=== PATIENT | female | born 1970 | race African-American/Black ===

== ENCOUNTER 2017-03-10 10:39 | Emergency (ER) | payer SELFPAY ==
[~2017-03-10] VITALS: Ht 157.5 cm; Wt 79.5 kg
[2017-03-10] MEDS ORDERED: METFORMIN500 MG PO (11:04)
[2017-03-10] MEDS ORDERED: LISINOPRIL10 MG PO (11:04)
[2017-03-10] MEDS ORDERED: JANUVIA50 MG PO (11:05)
[2017-03-10] MEDS ORDERED: LANTUS100 UNIT/M SC ×2 (11:06)
[2017-03-10 12:58] LABS: HEMATOCRIT 39.5 % (37.0-47.0); HEMOGLOBIN 13.1 g/dl (12.0-16.0); IMMATURE GRANULOCYTES 0.3 % (0.0-1.0); MEAN CELL VOLUME 89.4 fL CALC (80.0-100.0); MEAN CORPUSCULAR HGB 29.6 pG CALC (26.0-32.0); MEAN CORPUSCULAR HGB CONC 33.2 g/L CALC (32.0-36.0); NEUT# 3.71 thou/uL (2.00-7.15); RED BLOOD COUNT 4.42 mill/uL (4.20-5.60)
[2017-03-10 13:12] LABS: ALBUMIN 4.3 g/dL (3.2-5.0); ALKALINE PHOSPHATASE 141 u/l (38-126); ANION GAP 14 (6-22 (CALC)); BILIRUBIN, TOTAL 0.6 mg/dL (0.0-1.4); BUN 10 mg/dL (7-17); BUN/CREATININE RATIO 19 (12-20 (CALC)); CALCIUM 9.8 mg/dL (8.4-10.2); CARBON DIOXIDE 28 mmol/l (22-30); CHLORIDE 104 mmol/l (95-108); CREATININE 0.6 mg/dL (0.5-1.0); GFR > 60 ML/MIN (>=60 (CALC)); GFR FOR AFR.AMER. > 60 ML/MIN (>=60 (CALC)); GLUCOSE 175 mg/dL (65-105); POTASSIUM 3.9 mmol/l (3.5-5.1); SGOT/AST 29 u/l (14-36); SGPT/ALT 42 u/l (9-52); SODIUM 141 mmol/l (137-146); TOTAL PROTEIN 7.9 g/dL (6.3-8.2)
[2017-03-10 13:22] LABS: MYOGLOBIN 24 ng/mL (0 - 62)
[2017-03-10] MEDS ORDERED: KEFLEX500 MG PO (13:54)
[2017-03-10] MEDS ORDERED: PEPCID20 MG PO (13:54)
[2017-03-10] MEDS ORDERED: MEDDOSEPAK PO (13:54)
[2017-03-10 13:59] VITALS: BP 177/84
== END 2017-03-10 14:08 | disposition home or self-care (01) | DRG 305 ==
LOC: ED 10:39
PROVIDERS: Emergency Medicine
DX: I10 Essential (primary) hypertension (principal); E11.9 Type 2 diabetes mellitus without complications; T63.481A Toxic effect of venom of other arthropod, accidental (unintentional), initial encounter; R22.0 Localized swelling, mass and lump, head; F17.210 Nicotine dependence, cigarettes, uncomplicated; Z79.4 Long term (current) use of insulin

== ENCOUNTER 2017-07-06 17:54 | Emergency (ER) | payer OTHER ==
[~2017-07-06] VITALS: Ht 157.5 cm; Wt 77.3 kg
[~2017-07-06 17:54] MED LIST: JANUVIA50 MG PO; KEFLEX500 MG PO; LANTUS100 UNIT/M SC; LISINOPRIL10 MG PO; MEDDOSEPAK PO; METFORMIN500 MG PO; PEPCID20 MG PO
[2017-07-06] MEDS ORDERED: LOSARTAN POT50 MG PO (18:06)
[2017-07-06] MEDS ORDERED: TORADOL PO (19:17)
[2017-07-06] MEDS ORDERED: ORPHENADRINE100 MG PO (19:17)
[2017-07-06 19:36] VITALS: BP 160/89
== END 2017-07-06 19:36 | disposition home or self-care (01) | DRG 552 ==
LOC: ED 17:54
DX: M54.5 Low back pain (principal); X50.0XXA Overexertion from strenuous movement or load, initial encounter; Y93.89 Activity, other specified; Y92.009 Unspecified place in unspecified non-institutional (private) residence as the place of occurrence of the external cause

== ENCOUNTER 2017-08-16 18:13 | Emergency (ER) | payer OTHER ==
[~2017-08-16] VITALS: Ht 157.5 cm; Wt 70.0 kg
[~2017-08-16 18:13] MED LIST changes: +LOSARTAN POT50 MG PO; +ORPHENADRINE100 MG PO; +TORADOL PO
[2017-08-16] MEDS ORDERED: NAPROSYN500 MG PO (19:06)
[2017-08-16 19:10] VITALS: BP 180/98
== END 2017-08-16 19:12 | disposition home or self-care (01) | DRG 605 ==
LOC: ED 18:13
DX: S90.01XA Contusion of right ankle, initial encounter (principal); M25.461 Effusion, right knee; M25.561 Pain in right knee; W22.8XXA Striking against or struck by other objects, initial encounter; Y93.89 Activity, other specified; Y92.512 Supermarket, store or market as the place of occurrence of the external cause

== ENCOUNTER 2018-04-21 14:12 | Emergency (ER) | payer SELFPAY ==
[~2018-04-21] VITALS: Ht 157.5 cm; Wt 81.0 kg
[~2018-04-21 14:12] MED LIST changes: +NAPROSYN500 MG PO
[2018-04-21] MEDS ORDERED: LOTRISONE CREAM15 GM EX (15:29)
[2018-04-21] MEDS ORDERED: TORADOL PO (15:29)
[2018-04-21] MEDS ORDERED: AUGMENTIN500TAB PO (15:30)
[2018-04-21 15:35] VITALS: BP 157/88
== END 2018-04-21 15:35 | disposition home or self-care (01) | DRG 816 ==
LOC: ED 14:12
DX: I88.8 Other nonspecific lymphadenitis (principal); F17.210 Nicotine dependence, cigarettes, uncomplicated; G50.1 Atypical facial pain; R21 Rash and other nonspecific skin eruption

== ENCOUNTER 2018-09-05 17:08 | Emergency (ER) | payer SELFPAY ==
[~2018-09-05] VITALS: Ht 157.5 cm; Wt 79.0 kg
[~2018-09-05 17:08] MED LIST changes: +AUGMENTIN500TAB PO; +LOTRISONE CREAM15 GM EX
[2018-09-05] MEDS ORDERED: FLEXERIL5 M1 PO (18:16)
[2018-09-05] MEDS ORDERED: TRAMADOL HCL50 MG PO (18:16)
[2018-09-05] MEDS ORDERED: VOLTAREN - GENE75 MG PO (18:16)
[2018-09-05 18:25] VITALS: BP 166/87
== END 2018-09-05 18:25 | disposition home or self-care (01) | DRG 563 ==
LOC: ED 17:08
DX: S39.012A Strain of muscle, fascia and tendon of lower back, initial encounter (principal)

== ENCOUNTER 2019-04-15 18:45 | Emergency (ER) | payer BC ==
[~2019-04-15] VITALS: Ht 160 cm; Wt 77.2 kg
[~2019-04-15 18:45] MED LIST changes: +FLEXERIL5 M1 PO; +TRAMADOL HCL50 MG PO; +VOLTAREN - GENE75 MG PO
[2019-04-15 20:17] LABS: HEMATOCRIT 38.8 % (37.0-47.0); IMMATURE GRANULOCYTES 0.1 % (0.0-5.0); MEAN CELL VOLUME 89.8 fL CALC (80.0-100.0); MEAN CORPUSCULAR HGB 30.1 pG CALC (26.0-32.0); MEAN CORPUSCULAR HGB CONC 33.5 g/L CALC (32.0-36.0); NEUT# 3.97 thou/uL (2.00-7.15); RED BLOOD COUNT 4.32 mill/uL (4.20-5.60); RED CELL DISTRI WIDTH 13.4 % (11.5-15.5)
[2019-04-15 20:30] LABS: ALBUMIN 4.1 g/dL (3.2-5.0); ALKALINE PHOSPHATASE 131 u/l (38-126); BILIRUBIN, TOTAL 0.7 mg/dL (0.0-1.4); BUN 18 mg/dL (7-17); BUN/CREATININE RATIO 29 (12-20 (CALC)); CARBON DIOXIDE 26 mmol/l (22-30); CHLORIDE 100 mmol/l (95-108); CREATININE 0.6 mg/dL (0.5-1.0); GFR > 60 ML/MIN (>=60 (CALC)); GFR FOR AFR.AMER. > 60 ML/MIN (>=60 (CALC)); SGOT/AST 34 u/l (14-36); SODIUM 137 mmol/l (137-146); TOTAL PROTEIN 7.1 g/dL (6.3-8.2)
[2019-04-15 20:34] LABS: ANION GAP 16 (6-22 (CALC)); POTASSIUM 4.7 mmol/l (3.5-5.1)
[2019-04-15 20:39] LABS: URINE BILIRUBIN - DIPSTICK NEGATIVE (NEGATIVE); URINE BLOOD DIPSTICK TRACE-INTACT (NEGATIVE); URINE COLOR YELLOW; URINE GLUCOSE - DIPSTICK >=1000 mg/dL (NEGATIVE); URINE KETONE NEGATIVE (NEGATIVE); URINE LEUK ESTERASE NEGATIVE (NEGATIVE); URINE NITRITE - DIPSTICK NEGATIVE (Negative); URINE PH 5.5 (4.5-8.0); URINE PROTEIN - DIPSTICK NEGATIVE (NEG-TRACE); URINE UROBILINOGEN - DIPSTICK 0.2 E.U./dL (0.2)
[2019-04-15 20:41] LABS: BARBITURATES NEGATIVE (NEGATIVE); COCAINE NEGATIVE (NEGATIVE); METHADONE NEGATIVE (NEGATIVE); OXCYCODONE NEGATIVE (NEGATIVE); TETRAHYDROCANNABIONOL NEGATIVE (NEGATIVE); TRICYLIC ANTIDEPRESSANTS NEGATIVE (NEGATIVE)
[2019-04-15 20:42] LABS: MYOGLOBIN 22 ng/mL (0 - 62)
[2019-04-15 21:00] VITALS: BP 158/74
[2019-04-15] MEDS ORDERED: XANAX0.5 MG PO (21:01)
== END 2019-04-15 21:05 | disposition home or self-care (01) | DRG 310 ==
LOC: ED 18:45
PROVIDERS: Emergency Medicine
DX: R00.2 Palpitations (principal); E11.65 Type 2 diabetes mellitus with hyperglycemia; Z79.4 Long term (current) use of insulin; Z79.84 Long term (current) use of oral hypoglycemic drugs; F41.9 Anxiety disorder, unspecified; F17.210 Nicotine dependence, cigarettes, uncomplicated

== ENCOUNTER 2020-10-19 19:16 | Emergency (ER) | payer OTHER ==
[~2020-10-19] VITALS: Ht 160 cm; Wt 79.0 kg
[~2020-10-19 19:16] MED LIST changes: -LOSARTAN POT50 MG PO; +LOSARTAN POTAS100 MG PO; +XANAX0.5 MG PO
[2020-10-19] MEDS ORDERED: HYDROCHLOROT12.5 M1 PO (19:44)
[2020-10-19] MEDS ORDERED: NORVASC5 M1 PO (19:45)
[2020-10-19 20:12] LABS: URINE BILIRUBIN - DIPSTICK NEGATIVE (NEGATIVE); URINE BLOOD DIPSTICK MODERATE (NEGATIVE); URINE COLOR YELLOW; URINE GLUCOSE - DIPSTICK >=1000 mg/dL (NEGATIVE); URINE KETONE NEGATIVE (NEGATIVE); URINE LEUK ESTERASE NEGATIVE (NEGATIVE); URINE NITRITE - DIPSTICK NEGATIVE (Negative); URINE PH 5.5 (4.5-8.0); URINE PROTEIN - DIPSTICK 100 mg/dL (NEG-TRACE); URINE SPECIFIC GRAVITY 1.025; URINE UROBILINOGEN - DIPSTICK 0.2 E.U./dL (0.2)
[2020-10-19 20:23] LABS: HEMOGLOBIN 13.8 g/dl (12.0-16.0); RED BLOOD COUNT 4.61 mill/uL (4.20-5.60)
[2020-10-19 20:24] LABS: HEMATOCRIT 41.5 % (37.0-47.0); LYMPH% 41 % (15-41); MEAN CORPUSCULAR HGB 29.9 pG CALC (26.0-32.0); MEAN CORPUSCULAR HGB CONC 33.3 g/dL CAL (32.0-36.0); MONO% 3 % (2-13); NEUT% 56 % (42-76); PLATELET COUNT 287 thou/uL (130-400); RED CELL DISTRI WIDTH 13.7 % (11.5-15.5)
[2020-10-19 20:25] LABS: BASO% 0 % (0-3); EOS% 0 % (0-8)
[2020-10-19 20:26] LABS: URINE SQUAMOUS EPITHELIAL CELL FEW EPI/hpf (0-FEW); URINE WBC 0-2 WBC/hpf (0-5)
[2020-10-19 20:29] LABS: ALBUMIN 4.1 g/dL (3.2-5.0); ALKALINE PHOSPHATASE 147 u/l (38-126); BUN 13 mg/dL (7-17); BUN/CREATININE RATIO 20 (12-20 (CALC)); CARBON DIOXIDE 28 mmol/l (22-30); CHLORIDE 102 mmol/l (95-108); CREATININE 0.7 mg/dL (0.5-1.0); GFR > 60 ML/MIN (>=60 (CALC)); GFR FOR AFR.AMER. > 60 ML/MIN (>=60 (CALC)); SGOT/AST 23 u/l (14-36); SODIUM 138 mmol/l (137-146); TOTAL PROTEIN 7.6 g/dL (6.3-8.2)
[2020-10-19 20:31] LABS: ANION GAP 12 (6-22 (CALC)); BILIRUBIN, TOTAL 0.4 mg/dL (0.0-1.4); POTASSIUM 3.7 mmol/l (3.5-5.1)
[2020-10-19 20:41] LABS: MYOGLOBIN 25 ng/mL (0 - 62)
[2020-10-19] MEDS ORDERED: CLARITIN10 M1 PO (21:43)
[2020-10-19] MEDS ORDERED: AMOXICILLIN500 MG PO (21:43)
[2020-10-19 21:50] VITALS: BP 169/77
[2020-10-19] MEDS ORDERED: METFORMIN HCL500 M1 PO (22:01)
--- NOTE | 2020-10-21 08:55 | NUR ---
Patient called for Covid results. ADvised patient of negative results. PAtient c/o cough and runny nose. Denies fever or SOB. Advised patient to follow up with PCP and toreturn to ED with any difficulty breathing. Advised patient to continue to practice Covid prevention. Patient verbalized understanding.
== END 2020-10-19 21:50 | disposition home or self-care (01) | DRG 153 ==
LOC: ED 19:16
PROVIDERS: Emergency Medicine
DX: J02.9 Acute pharyngitis, unspecified (principal); E11.65 Type 2 diabetes mellitus with hyperglycemia; I10 Essential (primary) hypertension; E11.51 Type 2 diabetes mellitus with diabetic peripheral angiopathy without gangrene; Z79.4 Long term (current) use of insulin; F17.210 Nicotine dependence, cigarettes, uncomplicated; T38.3X6A Underdosing of insulin and oral hypoglycemic [antidiabetic] drugs, initial encounter; Z91.128 Patient's intentional underdosing of medication regimen for other reason; Z63.4 Disappearance and death of family member; Z20.828 Contact with and (suspected) exposure to other viral communicable diseases

== ENCOUNTER 2021-03-02 | Emergency (ER) | payer OTHER ==
[~2021-03-02] MED LIST changes: +AMOXICILLIN500 MG PO; +CLARITIN10 M1 PO; +GABAPENTIN100 MG PO; +GLIPIZIDE ER2.5 MG PO; +HYDROCHLOROT12.5 M1 PO; +JANUVIA100 MG PO; +LIPITOR40 M1 PO; +LORAZEPAM0.5 MG PO; +METFORMIN HCL500 M1 PO; +NORVASC5 M1 PO
[2021-03-02] MEDS ORDERED: BANOPHEN50 MG PO (18:44)
[2021-03-02 19:51] LABS: HEMATOCRIT 38.1 % (37.0-47.0); HEMOGLOBIN 12.2 g/dl (12.0-16.0); IMMATURE GRANULOCYTES 0.3 % (0.0-5.0); MEAN CORPUSCULAR HGB 28.5 pG CALC (26.0-32.0); NEUT# 3.81 thou/uL (2.00-7.15); RED BLOOD COUNT 4.28 mill/uL (4.20-5.60); RED CELL DISTRI WIDTH 12.8 % (11.5-15.5)
[2021-03-02 20:09] LABS: ALBUMIN 4.4 g/dL (3.2-5.0); ALKALINE PHOSPHATASE 131 u/l (38-126); ANION GAP 10 (6-22 (CALC)); BILIRUBIN, TOTAL 0.5 mg/dL (0.0-1.4); BUN 16 mg/dL (7-17); BUN/CREATININE RATIO 24 (12-20 (CALC)); CARBON DIOXIDE 32 mmol/l (22-30); CHLORIDE 101 mmol/l (95-108); CREATININE 0.6 mg/dL (0.5-1.0); GFR > 60 ML/MIN (>=60 (CALC)); GFR FOR AFR.AMER. > 60 ML/MIN (>=60 (CALC)); LIPASE 287 u/l (23-300); POTASSIUM 3.8 mmol/l (3.5-5.1); SGOT/AST 30 u/l (14-36); SODIUM 140 mmol/l (137-146); TOTAL PROTEIN 7.9 g/dL (6.3-8.2)
[2021-03-02 20:12] LABS: ACT PARTIAL THROMBO TIME 25.9 SECONDS (20.0-32.5); PROTHROMBIN TIME 9.8 SECONDS (9.0-12.5)
== END 2021-03-02 22:16 | disposition home or self-care (01) | DRG 125 ==
DX: H53.8 Other visual disturbances (principal); I10 Essential (primary) hypertension; E11.9 Type 2 diabetes mellitus without complications; I25.10 Atherosclerotic heart disease of native coronary artery without angina pectoris; F17.210 Nicotine dependence, cigarettes, uncomplicated; Z95.5 Presence of coronary angioplasty implant and graft; Z79.84 Long term (current) use of oral hypoglycemic drugs
CPT/HCPCS: Q9967

== ENCOUNTER 2023-02-10 00:18 | Inpatient (IN) | payer OTHER ==
[~2023-02-10] VITALS: Ht 162.6 cm; Wt 83.2 kg
[2023-02-10] VITALS (77 sets, daily range): BP systolic 132–202; BP diastolic 51–129
[~2023-02-10 00:18] MED LIST changes: +BANOPHEN50 MG PO
[2023-02-10 00:49] LABS: BASO% 0.4 % (0-3); EOS% 1.6 % (0-8); HEMATOCRIT 39.6 % (37.0-47.0); HEMOGLOBIN 12.9 g/dl (12.0-16.0); IMMATURE GRANULOCYTES 0.6 % (0.0-5.0); LYMPH% 42.5 % (15-41); MEAN CELL VOLUME 89.6 fL CALC (80.0-100.0); MEAN CORPUSCULAR HGB 29.2 pG CALC (26.0-32.0); MEAN CORPUSCULAR HGB CONC 32.6 g/dL CAL (32.0-36.0); MONO% 5.1 % (2-13); NEUT# 5.25 thou/uL (2.00-7.15); NEUT% 49.8 % (42-76); RED BLOOD COUNT 4.42 mill/uL (4.20-5.60); RED CELL DISTRI WIDTH 13.7 % (11.5-15.5)
[2023-02-10 01:31] LABS: ALKALINE PHOSPHATASE 128 u/l (38-126); ANION GAP 12 (6-22 (CALC)); BILIRUBIN, TOTAL 0.5 mg/dL (0.02-1.3); BUN 17 mg/dL (7-17); BUN/CREATININE RATIO 21 (12-20 (CALC)); CARBON DIOXIDE 30 mmol/l (22-30); CHLORIDE 100 mmol/l (95-108); CREATININE 0.8 mg/dL (0.5-1.0); GFR FOR AFR.AMER. > 60 ML/MIN (>=60 (CALC)); GFR OTHER RACES > 60 ML/MIN (>=60 (CALC)); POTASSIUM 4.4 mmol/l (3.5-5.1); SGOT/AST 37 u/l (14-36); SODIUM 137 mmol/l (137-146); TOTAL PROTEIN 6.8 g/dL (6.3-8.2)
[2023-02-10 02:39] LABS: TSH, 3RD GENERATION 2.55 uIU/mL (0.47 - 4.68)
[2023-02-10 06:12] LABS: URINE BILIRUBIN - DIPSTICK NEGATIVE (NEGATIVE); URINE BLOOD DIPSTICK TRACE-LYSED (NEGATIVE); URINE COLOR YELLOW; URINE GLUCOSE - DIPSTICK 100 mg/dL (NEGATIVE); URINE KETONE NEGATIVE (NEGATIVE); URINE LEUK ESTERASE NEGATIVE (NEGATIVE); URINE PROTEIN - DIPSTICK 100 mg/dL (NEG-TRACE); URINE SPECIFIC GRAVITY 1.015; URINE UROBILINOGEN - DIPSTICK 0.2 E.U./dL (0.2)
[2023-02-10 06:25] LABS: URINE NITRITE - DIPSTICK NEGATIVE (Negative)
[2023-02-10 06:29] LABS: URINE BACTERIA FEW hpf; URINE EPITHELIAL CELLS FEW EPI/hpf (0-FEW); URINE RBC 0-2 RBC/hpf (0-5); URINE WBC 0-2 WBC/hpf (0-5)
[2023-02-11] VITALS (12 sets, daily range): BP systolic 135–218; BP diastolic 62–99
[2023-02-11 05:26] LABS: HEMATOCRIT 36.1 % (37.0-47.0); HEMOGLOBIN 11.7 g/dl (12.0-16.0); MEAN CELL VOLUME 92.1 fL CALC (80.0-100.0); MEAN CORPUSCULAR HGB 29.8 pG CALC (26.0-32.0); MEAN CORPUSCULAR HGB CONC 32.4 g/dL CAL (32.0-36.0); RED BLOOD COUNT 3.92 mill/uL (4.20-5.60); RED CELL DISTRI WIDTH 14.2 % (11.5-15.5)
[2023-02-11 06:02] LABS: ALBUMIN 3.3 g/dL (3.2-5.0); ALKALINE PHOSPHATASE 119 u/l (38-126); ANION GAP 8 (6-22 (CALC)); BILIRUBIN, TOTAL 0.3 mg/dL (0.02-1.3); BUN 18 mg/dL (7-17); BUN/CREATININE RATIO 26 (12-20 (CALC)); CARBON DIOXIDE 26 mmol/l (22-30); CHLORIDE 108 mmol/l (95-108); CREATININE 0.7 mg/dL (0.5-1.0); GFR FOR AFR.AMER. > 60 ML/MIN (>=60 (CALC)); GFR OTHER RACES > 60 ML/MIN (>=60 (CALC)); MAGNESIUM 2.2 mg/dL (1.6-2.3); POTASSIUM 4.3 mmol/l (3.5-5.1); SGOT/AST 40 u/l (14-36); SODIUM 138 mmol/l (137-146); TOTAL PROTEIN 5.8 g/dL (6.3-8.2)
[2023-02-11] MEDS ORDERED: ELIQUIS5 MG PO (09:28)
[2023-02-11] MEDS ORDERED: LOPRESSOR25 MG PO (09:29)
[2023-02-11] MEDS ORDERED: ADLT ASA LOW81 MG PO (09:29)
[2023-02-12 08:21] VITALS: BP 140/70
== END 2023-02-11 11:13 | disposition home or self-care (01) | DRG 310 ==
LOC: ED 00:18 → ED-I 02:30 → ED 02:52 → ICU 02:53
PROVIDERS: Emergency Medicine; ADMIT Internal Medicine; ATTEND Internal Medicine
DX: I48.91 Unspecified atrial fibrillation (principal); I47.29 Other ventricular tachycardia; I10 Essential (primary) hypertension; E11.9 Type 2 diabetes mellitus without complications; I25.10 Atherosclerotic heart disease of native coronary artery without angina pectoris; E78.5 Hyperlipidemia, unspecified; F17.200 Nicotine dependence, unspecified, uncomplicated; Z95.5 Presence of coronary angioplasty implant and graft; Z79.84 Long term (current) use of oral hypoglycemic drugs
CPT/HCPCS: J0282

== ENCOUNTER 2023-04-03 23:49 | Inpatient (IN) | payer OTHER ==
[~2023-04-03] VITALS: Ht 162.6 cm; Wt 81.0 kg
[~2023-04-03 23:49] MED LIST changes: +ADLT ASA LOW81 MG PO; +ELIQUIS5 MG PO; +LOPRESSOR25 MG PO
[2023-04-04] VITALS (23 sets, daily range): BP systolic 123–197; BP diastolic 49–105
[2023-04-04 00:34] LABS: BASO% 0.5 % (0-3); EOS% 2.1 % (0-8); IMMATURE GRANULOCYTES 0.3 % (0.0-5.0); LYMPH% 40.7 % (15-41); MEAN CELL VOLUME 90.9 fL CALC (80.0-100.0); MEAN CORPUSCULAR HGB 29.4 pG CALC (26.0-32.0); MEAN CORPUSCULAR HGB CONC 32.3 g/dL CAL (32.0-36.0); MONO% 5.2 % (2-13); NEUT# 5.01 thou/uL (2.00-7.15); NEUT% 51.2 % (42-76); RED BLOOD COUNT 4.73 mill/uL (4.20-5.60); RED CELL DISTRI WIDTH 13.6 % (11.5-15.5)
[2023-04-04 00:38] LABS: HEMOGLOBIN 13.9 g/dl (12.0-16.0)
[2023-04-04 00:51] LABS: INTERNATIONAL NORMALIZED RATIO 0.9 RATIO (0.7-1.3); PROTHROMBIN TIME 9.4 SECONDS (9.0-12.5)
[2023-04-04 00:52] LABS: ALKALINE PHOSPHATASE 116 u/l (38-126); BUN 20 mg/dL (7-17); BUN/CREATININE RATIO 24 (12-20 (CALC)); CHLORIDE 103 mmol/l (95-108); CREATININE 0.8 mg/dL (0.5-1.0); GFR FOR AFR.AMER. > 60 ML/MIN (>=60 (CALC)); GFR OTHER RACES > 60 ML/MIN (>=60 (CALC)); POTASSIUM 4.1 mmol/l (3.5-5.1); SGOT/AST 38 u/l (14-36); SODIUM 141 mmol/l (137-146)
[2023-04-04 00:54] LABS: ALBUMIN 4.4 g/dL (3.2-5.0); ANION GAP 10 (6-22 (CALC)); BILIRUBIN, TOTAL 0.5 mg/dL (0.02-1.3); CARBON DIOXIDE 32 mmol/l (22-30); TOTAL PROTEIN 7.5 g/dL (6.3-8.2)
[2023-04-04 03:25] LABS: URINE BILIRUBIN - DIPSTICK NEGATIVE (NEGATIVE); URINE BLOOD DIPSTICK SMALL (NEGATIVE); URINE COLOR YELLOW; URINE GLUCOSE - DIPSTICK NEGATIVE (NEGATIVE); URINE KETONE NEGATIVE (NEGATIVE); URINE LEUK ESTERASE NEGATIVE (NEGATIVE); URINE NITRITE - DIPSTICK NEGATIVE (Negative); URINE PH 6.5 (4.5-8.0); URINE PROTEIN - DIPSTICK 100 mg/dL (NEG-TRACE); URINE UROBILINOGEN - DIPSTICK 0.2 E.U./dL (0.2)
[2023-04-04 03:34] LABS: URINE SQUAMOUS EPITHELIAL CELL FEW EPI/hpf (0-FEW)
[2023-04-04 19:17] LABS: CHOLESTEROL HDL RATIO 3.9 (<4.4 (CALC))
[2023-04-05] VITALS (28 sets, daily range): BP systolic 118–184; BP diastolic 58–133
[2023-04-05 04:12] LABS: HEMATOCRIT 37.6 % (37.0-47.0); HEMOGLOBIN 12.1 g/dl (12.0-16.0); MEAN CELL VOLUME 91.9 fL CALC (80.0-100.0); MEAN CORPUSCULAR HGB 29.6 pG CALC (26.0-32.0); MEAN CORPUSCULAR HGB CONC 32.2 g/dL CAL (32.0-36.0); RED BLOOD COUNT 4.09 mill/uL (4.20-5.60); RED CELL DISTRI WIDTH 13.6 % (11.5-15.5)
[2023-04-05 04:28] LABS: ALBUMIN 3.7 g/dL (3.2-5.0); ALKALINE PHOSPHATASE 100 u/l (38-126); ANION GAP 7 (6-22 (CALC)); BILIRUBIN, TOTAL 0.3 mg/dL (0.02-1.3); BUN 20 mg/dL (7-17); BUN/CREATININE RATIO 24 (12-20 (CALC)); CARBON DIOXIDE 30 mmol/l (22-30); CHLORIDE 106 mmol/l (95-108); CREATININE 0.9 mg/dL (0.5-1.0); GFR FOR AFR.AMER. > 60 ML/MIN (>=60 (CALC)); GFR OTHER RACES > 60 ML/MIN (>=60 (CALC)); MAGNESIUM 2.1 mg/dL (1.6-2.3); POTASSIUM 4.3 mmol/l (3.5-5.1); SGOT/AST 29 u/l (14-36); SODIUM 139 mmol/l (137-146); TOTAL PROTEIN 6.7 g/dL (6.3-8.2)
[2023-04-06] VITALS (17 sets, daily range): BP systolic 130–188; BP diastolic 56–119
[2023-04-06 05:15] LABS: HEMATOCRIT 37.1 % (37.0-47.0); MEAN CELL VOLUME 91.2 fL CALC (80.0-100.0); MEAN CORPUSCULAR HGB 29.5 pG CALC (26.0-32.0); MEAN CORPUSCULAR HGB CONC 32.3 g/dL CAL (32.0-36.0); RED BLOOD COUNT 4.07 mill/uL (4.20-5.60); RED CELL DISTRI WIDTH 13.5 % (11.5-15.5)
[2023-04-06 05:30] LABS: ALBUMIN 3.8 g/dL (3.2-5.0); ALKALINE PHOSPHATASE 99 u/l (38-126); ANION GAP 11 (6-22 (CALC)); BILIRUBIN, TOTAL 0.4 mg/dL (0.02-1.3); BUN 24 mg/dL (7-17); BUN/CREATININE RATIO 32 (12-20 (CALC)); CARBON DIOXIDE 27 mmol/l (22-30); CHLORIDE 106 mmol/l (95-108); CREATININE 0.7 mg/dL (0.5-1.0); GFR FOR AFR.AMER. > 60 ML/MIN (>=60 (CALC)); GFR OTHER RACES > 60 ML/MIN (>=60 (CALC)); POTASSIUM 4.3 mmol/l (3.5-5.1); SGOT/AST 31 u/l (14-36); SODIUM 139 mmol/l (137-146); TOTAL PROTEIN 6.7 g/dL (6.3-8.2)
[2023-04-07] VITALS: BP 128/60
[2023-04-07 00:01] VITALS: BP 128/60
[2023-04-07 04:00] VITALS: BP 143/65
[2023-04-07 04:12] VITALS: BP 143/65
[2023-04-07 06:10] LABS: HEMATOCRIT 36.8 % (37.0-47.0); HEMOGLOBIN 11.9 g/dl (12.0-16.0); MEAN CELL VOLUME 92.2 fL CALC (80.0-100.0); MEAN CORPUSCULAR HGB 29.8 pG CALC (26.0-32.0); MEAN CORPUSCULAR HGB CONC 32.3 g/dL CAL (32.0-36.0); RED BLOOD COUNT 3.99 mill/uL (4.20-5.60); RED CELL DISTRI WIDTH 13.5 % (11.5-15.5)
[2023-04-07 06:26] LABS: ALBUMIN 3.9 g/dL (3.2-5.0); ALKALINE PHOSPHATASE 98 u/l (38-126); ANION GAP 10 (6-22 (CALC)); BILIRUBIN, TOTAL 0.3 mg/dL (0.02-1.3); BUN 27 mg/dL (7-17); BUN/CREATININE RATIO 33 (12-20 (CALC)); CARBON DIOXIDE 27 mmol/l (22-30); CHLORIDE 106 mmol/l (95-108); CREATININE 0.8 mg/dL (0.5-1.0); GFR FOR AFR.AMER. > 60 ML/MIN (>=60 (CALC)); GFR OTHER RACES > 60 ML/MIN (>=60 (CALC)); MAGNESIUM 1.9 mg/dL (1.6-2.3); POTASSIUM 4.4 mmol/l (3.5-5.1); SGOT/AST 27 u/l (14-36); SODIUM 139 mmol/l (137-146); TOTAL PROTEIN 6.4 g/dL (6.3-8.2)
[2023-04-07 08:24] VITALS: BP 144/74
[2023-04-07 08:25] VITALS: BP 144/74
== END 2023-04-07 16:00 | DRG 65 ==
LOC: ED 23:49 → ICU 04-04 04:27
PROVIDERS: Emergency Medicine; Internal Medicine; ADMIT Internal Medicine; ATTEND Internal Medicine
DX: I63.81 Other cerebral infarction due to occlusion or stenosis of small artery (principal); G81.94 Hemiplegia, unspecified affecting left nondominant side; R29.706 NIHSS score 6; I10 Essential (primary) hypertension; I48.0 Paroxysmal atrial fibrillation; I25.10 Atherosclerotic heart disease of native coronary artery without angina pectoris; E11.51 Type 2 diabetes mellitus with diabetic peripheral angiopathy without gangrene; E78.5 Hyperlipidemia, unspecified; F17.200 Nicotine dependence, unspecified, uncomplicated; Z95.5 Presence of coronary angioplasty implant and graft; Z98.62 Peripheral vascular angioplasty status; Z79.84 Long term (current) use of oral hypoglycemic drugs; Z79.01 Long term (current) use of anticoagulants; Z79.82 Long term (current) use of aspirin
CPT/HCPCS: J2060; Q9967

== ENCOUNTER 2023-07-09 17:01 | Emergency (ER) | payer OTHER | END 2023-07-09 18:05 | disposition left against medical advice (07) | DRG 951 | LOC: ED 17:01 → LWOBS 18:05 | DX: Z53.21 Procedure and treatment not carried out due to patient leaving prior to being seen by health care provider (principal) ==

== ENCOUNTER 2023-08-18 19:12 | Emergency (ER) | payer OTHER ==
[~2023-08-18] VITALS: Ht 162.6 cm; Wt 81.0 kg
[2023-08-18] VITALS (17 sets, daily range): BP systolic 123–152; BP diastolic 58–84
[2023-08-18 19:43] LABS: BASO% 0.3 % (0-3); HEMATOCRIT 31.9 % (37.0-47.0); HEMOGLOBIN 10.5 g/dl (12.0-16.0); IMMATURE GRANULOCYTES 0.1 % (0.0-5.0); LYMPH% 27.3 % (15-41); MEAN CELL VOLUME 89.6 fL CALC (80.0-100.0); MEAN CORPUSCULAR HGB 29.5 pG CALC (26.0-32.0); MEAN CORPUSCULAR HGB CONC 32.9 g/dL CAL (32.0-36.0); MONO% 7.9 % (2-13); NEUT# 6.2 thou/uL (2.00-7.15); NEUT% 63.4 % (42-76); RED BLOOD COUNT 3.56 mill/uL (4.20-5.60); RED CELL DISTRI WIDTH 12.7 % (11.5-15.5)
[2023-08-18 19:52] LABS: ALBUMIN 4.1 g/dL (3.2-5.0); ALKALINE PHOSPHATASE 116 u/l (38-126); ANION GAP 13 (6-22 (CALC)); BILIRUBIN, TOTAL 0.8 mg/dL (0.02-1.3); BUN 18 mg/dL (7-17); BUN/CREATININE RATIO 17 (12-20 (CALC)); CARBON DIOXIDE 25 mmol/l (22-30); CHLORIDE 101 mmol/l (95-108); GFR FOR AFR.AMER. > 60 ML/MIN (>=60 (CALC)); GFR OTHER RACES 58 ML/MIN (>=60 (CALC)); MAGNESIUM 2.2 mg/dL (1.6-2.3); POTASSIUM 4.2 mmol/l (3.5-5.1); SGOT/AST 42 u/l (14-36); SODIUM 135 mmol/l (137-146); TOTAL PROTEIN 7.6 g/dL (6.3-8.2)
== END 2023-08-18 23:16 | disposition home or self-care (01) | DRG 310 ==
LOC: ED 19:12
PROVIDERS: Family Medicine
DX: I49.3 Ventricular premature depolarization (principal); I25.10 Atherosclerotic heart disease of native coronary artery without angina pectoris; I10 Essential (primary) hypertension; E11.9 Type 2 diabetes mellitus without complications; F17.200 Nicotine dependence, unspecified, uncomplicated; Z86.73 Personal history of transient ischemic attack (TIA), and cerebral infarction without residual deficits; Z95.5 Presence of coronary angioplasty implant and graft; Z95.820 Peripheral vascular angioplasty status with implants and grafts; Z79.84 Long term (current) use of oral hypoglycemic drugs

== ENCOUNTER 2024-08-12 07:06 | Day surgery (SDC) | payer OTHER ==
[~2024-08-12] VITALS: Ht 162.6 cm; Wt 74.8 kg
[~2024-08-12 07:06] MED LIST changes: +PLAVIX75 MG PO; +REPATHA140 MG/ML SC; +TOPROL XL50 MG PO; +TRULICITY0.75 MG/0. SC
[2024-08-12] MEDS ORDERED: FAMOTIDINE 10MG/ML 2ML SDV IV ONE (07:15)
[2024-08-12] MEDS ORDERED: SODIUM CHLORIDE 0.9% 1,000 ML IV ONE (07:15)
[2024-08-12 08:48] VITALS: BP 123/79
[2024-08-12] MEDS ORDERED: LIDOCAINE HCL 2% 2ML SDV IV ONE (15:09)
[2024-08-12] MEDS ORDERED: PROPOFOL 200 MG/20 ML VIAL IV ONE (15:09)
[2024-08-12] MEDS ORDERED: GLYCOPYRROLATE 0.2 MG/ML IV ONE (15:09)
== END 2024-08-12 09:05 | disposition home or self-care (01) | DRG 392 ==
LOC: ENDO 07:06 → ORM 11:55 → ENDO 11:55 → ORM 13:00
PROVIDERS: ATTEND Internal Medicine Gastroenterology
PROC: 0DBE8ZX Excision of Large Intestine, Via Natural or Artificial Opening Endoscopic, Diagnostic (ICD-10-PCS; principal; 2024-08-12)
DX: K52.9 Noninfective gastroenteritis and colitis, unspecified (principal); K64.8 Other hemorrhoids; I10 Essential (primary) hypertension; E11.51 Type 2 diabetes mellitus with diabetic peripheral angiopathy without gangrene; I25.10 Atherosclerotic heart disease of native coronary artery without angina pectoris; I48.91 Unspecified atrial fibrillation; E78.5 Hyperlipidemia, unspecified; I25.2 Old myocardial infarction; F17.210 Nicotine dependence, cigarettes, uncomplicated; Z86.73 Personal history of transient ischemic attack (TIA), and cerebral infarction without residual deficits; Z86.010 Personal history of colon polyps